=== PATIENT | female | born 1965 | race Caucasian/White ===

== ENCOUNTER 2017-01-04 05:41 | Day surgery (SDC) | payer OTHER ==
[~2017-01-04] VITALS: Ht 182.9 cm; Wt 84.7 kg
[2017-01-04] VITALS (15 sets, daily range): BP systolic 98–133; BP diastolic 66–79; PULSE 44–74; RESP 11–20
[2017-01-04] MEDS ORDERED: CEFAZOLIN 2 GM/50 ML (PMX) 50 ML IVPB ONE (06:00)
[2017-01-04] MEDS ORDERED: DEXTROSE 5%-LR 1,000 ML IV SCH (06:00)
--- NOTE | 2017-01-04 06:23 | PREOPHP ---
DATE OF ADMISSION: 01/04/2017 REASON FOR ADMISSION: The patient is coming on 01/04/2017 hysteroscopy, dilatation and curettage. HISTORY OF PRESENT ILLNESS: This is a 51-year-old female 0, para 0. The patient has 4 adopted children. The patient had been advised hysteroscopy, dilatation and curettage due to an early menopause at age 43 with a history of endometrial hyperplasia by ultrasound. The patient has no complaints of bleeding. She was infertile due to her endometriosis, due to polycystic ovary syndrome and endometriosis. Also, with a history of pelvic pain. She had an exploratory laparotomy in her past and 2 laparoscopies due to endometriosis and ovarian cysts. The patient, otherwise, has been healthy. Her ultrasound done in September of 2016 revealed that she has a large atrophic single fundal fibroid. Endometrium was 7 mm, thick for her age. Endometrium had also an unremarkable echotexture. The uterus was 6.3 cm with some fibroids that were less than 2 cm. For this reason and because the endometrium was larger than before, the endometrial biopsy and hysteroscopy was to be performed. The patient has been advised of the possible risks and possible complications of the procedure with her alternatives and options. Written information was provided. She had no more questions and agreed to go ahead with the procedure with full understanding and no more questions. ALLERGIES: SHE IS NOT ALLERGIC TO ANY MEDICATION. MEDICATIONS: She is on: 1. Tenuate 25 mg a day. 2. Progesterone 200 mg daily. 3. Testosterone cream. 4. Estrogen cream. PAST MEDICAL HISTORY: Her past history is for last period in 2008, never had children. She is not allergic to any medications. No history of any major medical antecedents except endometriosis. FAMILY HISTORY: There is family history for breast cancer. SOCIAL HISTORY: She smoked from age [age], but not since after. No history of drug addiction or alcohol. PHYSICAL EXAMINATION: VITAL SIGNS: Stable. Blood pressure is 110/70, pulse is 80, respirations 16. She weighs 186 pounds. She is 6 feet. HEENT: Normal. NECK: Normal. BREASTS: Soft, nontender, no masses. CHEST: Clear. HEART: Normal sinus rhythm. LUNGS: Clear. ABDOMEN: Soft, nontender, no masses. GENITALIA: Normal external genitalia. Cervix is normal. Uterus with a fibroid and adnexa are negative. EXTREMITIES: Normal. DIAGNOSES: 1. All fibroid uterus. 2. Menopausal syndrome. 3. Endometrial hyperplasia. PLAN: She is undergoing a fractional dilatation and curettage, hysteroscopy. She has been advised of the possible risks and possible complications of the procedure with her alternatives and options. Written information was provided. Again, she agreed to go ahead with the procedure with full understanding and no more questions. Dictated By: Adelia White MD /pina/micah /Document#: [id number]
[2017-01-04] MEDS ORDERED: ESTROGEN CREAM (06:47)
[2017-01-04] MEDS ORDERED: TESTOSTERONE CREAM (06:47)
[2017-01-04] MEDS ORDERED: CEFAZOLIN 1 GM INJ ONE ×2 (07:24→08:28)
[2017-01-04] MEDS ORDERED: PROPOFOL 20 ML ONE (07:24)
[2017-01-04] MEDS ORDERED: FENTAnyl 50 MCG/ML VIAL ONE (07:25)
[2017-01-04] MEDS ORDERED: MIDAZOLAM 1 MG/ML 2 ML INJ ONE (07:25)
[2017-01-04] MEDS ORDERED: LACTATED RINGER'S 1,000 ML IV SCH (07:30)
--- NOTE | 2017-01-04 07:58 | HPN ---
Date/Time of Note Date/Time of Note DATE: 01/04/17 TIME: 07:57 Interval H&P Admission Note Pt. seen H&P reviewed: No system changes MINESH SHINE MD Jan 04, 2017 07:58
[2017-01-04] MEDS ORDERED: LABETALOL HCL 20MG INJ ONE (08:23)
--- NOTE | 2017-01-04 08:23 | RADRPT ---
Vent Rate: 58 bpm RR Interval: 0 msec HI Interval: 162 msec QRS Duration: 86 msec QT Interval: 474 msec QTC Interval: 465 msec P-R-T [place]: 70 - 77 - 77 degrees Sinus bradycardia Otherwise normal ECG Electronically Signed By: Mona Yang [id number]
[2017-01-04] MEDS ORDERED: METOCLOPRAMIDE 10 MG INJ ONE (08:26)
[2017-01-04] MEDS ORDERED: ONDANSETRON 4 MG INJ ONE (08:26)
[2017-01-04] MEDS ORDERED: DEXAMETHASONE 4 MG/ML 1 ML INJ ONE (08:26)
[2017-01-04] MEDS ORDERED: KETOROLAC 30 MG INJ ONE (08:27)
[2017-01-04] MEDS ORDERED: ACETAMINOPHEN 1000MG/100ML IV 100 ML ONE (08:28)
[2017-01-04] MEDS ORDERED: LABETALOL HCL 20MG INJ IV PRN (08:30)
[2017-01-04] MEDS ORDERED: FENTAnyl 50 MCG/ML VIAL IV PRN ×3 (08:30)
[2017-01-04] MEDS ORDERED: OXYCODONE/ACETAMINOPHEN (5/325) TAB PO PRN (08:30)
[2017-01-04] MEDS ORDERED: ONDANSETRON 4 MG INJ IV PRN (08:30)
[2017-01-04] MEDS ORDERED: MEPERIDINE 25 MG INJ IV PRN (08:30)
[2017-01-04] MEDS ORDERED: EPHEDrine SULFATE 50 MG/5 ML SYG IV PRN (08:30)
[2017-01-04] MEDS ORDERED: METOCLOPRAMIDE 10 MG INJ IV PRN (08:30)
[2017-01-04] MEDS ORDERED: morphine (1 MG/ML) 10ML SYRINGE IV PRN ×3 (08:30)
[2017-01-04] MEDS ORDERED: DIPHENHYDRAMINE 50 MG INJ IV PRN (08:30)
--- NOTE | 2017-01-04 08:37 | PD.PPDC ---
[employer]NCING MACHINE OPERATOR Discharge Instruction Condition Patient Condition: Good Diet Diet: Resume Regular Diet Activity/Restrictions Activity: Normal Activity May Shower Restrictions: No Exercising No Lifting No Driving No Sexual Activity Nothing in the Vagina No Deputy No Tampons, douche Follow-up Follow-up with Physician: 2, Week/Weeks Return to clinic for WELDER EXPLOSION Instructions: Fever greater than 101 Chills Worsening abdominal pain Excessive Vaginal Bleeding More than 2 pads per hour Unable to tolerate diet MINESH SHINE MD Jan 04, 2017 08:37
--- NOTE | 2017-01-04 08:40 | OPR ---
Date/Time of Note Date/Time of Note DATE: 01/04/17 TIME: 08:38 Operative Report Procedure Date: Jan 04, 2017 Preoperative Diagnosis ENDOMETRIAL HYPERPLASIA MENOPAUSE OLD FIBROID UTERUS Postoperative Diagnosis SAME Surgeon: MINESH SHINE MD Anesthesia Type: general Anesthesiologist: MARISOL BENITEZ MD Estimated Blood Loss: minimal Transfusion Required: no Specimens ENDOMETRIAL TISSUE Grafts/Implants: none Complications: no Pt Condition Post Procedure: stable Disposition: PACU MINESH SHINE MD Jan 04, 2017 08:40
--- NOTE | 2017-01-04 09:23 | OPR ---
DATE OF OPERATION: 01/04/2017 OPERATION PERFORMED: Fractional dilation and curettage, and hysteroscopy. PREOPERATIVE DIAGNOSES: 1. Endometrial hyperplasia. 2. Menopause. 3. Fibroid uterus. POSTOPERATIVE DIAGNOSES: 1. Endometrial hyperplasia. 2. Menopause. 3. Fibroid uterus. SURGEON: Dr. White. ANESTHESIA: General. Dr. Marx. OPERATIVE PROCEDURE: The patient was given general anesthesia, placed in the lithotomy position. The perineal and vaginal area were prepped and draped and the vaginal speculum was applied. The cervix was held. Endocervical curettage was done. The uterus, being retroverted with a small fibroid, was dilated with Hegar dilators up to a #7 and the hysteroscope was placed in. The cavity was visualized with no polyps or no submucous fibroids. It is important to note that the ostium of the left tip was very dilated at the hydrosalpinx. The hysteroscope was removed and the cavity was revised with a sharp instrument anteriorly, posteriorly and laterally and in the fundus with a scanty amount of tissue removed. The procedure was finished by removing all the instruments. Procedure finished by removing all the instruments and the patient tolerated the procedure well and left the OR awake and stable. Sponge counts and instrument counts were correct and intravenous antibiotics were given for prophylaxis. Dictated By: Adelia White MD /pina/huyen /Document#: [id number]
== END 2017-01-04 11:19 | disposition home or self-care (01) ==
LOC: SDS 05:41
PROVIDERS: ATTEND Obstetrics & Gynecology
DX: N85.00 Endometrial hyperplasia, unspecified (principal); D25.9 Leiomyoma of uterus, unspecified
CPT/HCPCS: 58558; 88305; 93005; J0131; J0690; J1100; J1885; J2250; J2405; J2765; J3010; J7121; Z7512; Z7610